=== PATIENT | male | born 1955 | race Caucasian/White ===

== ENCOUNTER 2016-09-24 08:25 | Day surgery (SDC) | payer BC ==
[2016-09-24] MEDS ORDERED: D5 LR 1000 ML 0 ML IV ONE (08:43)
[2016-09-24] MEDS ORDERED: NS 1000 ML 1,000 ML ONE (09:01)
[2016-09-24] MEDS ORDERED: DIPRIVAN VIAL 20 ML ONE (10:11)
[2016-09-24 11:46] VITALS: BP 120/64
== END 2016-09-24 10:48 | disposition home or self-care (01) ==
LOC: SURG1 08:25
PROVIDERS: ATTEND Internal Medicine Gastroenterology
PROC: 0D757ZZ Dilation of Esophagus, Via Natural or Artificial Opening (ICD-10-PCS; principal; 2016-09-24 11:00)
PROC: 0DB88ZX Excision of Small Intestine, Via Natural or Artificial Opening Endoscopic, Diagnostic (ICD-10-PCS; principal; 2016-09-24 11:00)
PROC: 0DB68ZX Excision of Stomach, Via Natural or Artificial Opening Endoscopic, Diagnostic (ICD-10-PCS; principal; 2016-09-24 11:00)
PROC: 0DJ08ZZ Inspection of Upper Intestinal Tract, Via Natural or Artificial Opening Endoscopic (ICD-10-PCS; principal; 2016-09-24 11:00)
DX: R13.19 Other dysphagia (principal); R10.13 Epigastric pain; K21.9 Gastro-esophageal reflux disease without esophagitis; R19.7 Diarrhea, unspecified; K22.4 Dyskinesia of esophagus; K22.8 Other specified diseases of esophagus; K22.2 Esophageal obstruction; K29.60 Other gastritis without bleeding
CPT/HCPCS: A4217; J3490; J7120